=== PATIENT | female | born 1940 | race Caucasian/White ===

== ENCOUNTER 2016-10-14 07:49 | Emergency (ER) | payer MEDICARE, OTHER ==
--- NOTE | 2016-10-14 09:05 | CT ---
Exam: CT abdomen and pelvis without contrast COMPARISON: Lumbar spine radiographs 06/22/2016 INDICATION: Ground-level fall, right hip and pelvic pain. TECHNIQUE: CT examination of the abdomen and pelvis was obtained without contrast using a renal stone protocol. FINDINGS: Osteopenia. Sagittal alignment of the spine is unchanged, with trace retrolisthesis of L1 on L2 and L2 on L3 and trace anterolisthesis of L4 and L5. Levoconvex curvature centered at L3-4 is also unchanged. There is multilevel degenerative disc disease, most prominent from L1 through L4. There is no vertebral body compression fracture. Facet arthropathy is present within the spine. Lucent lesion within the left side of the sacrum is noted and a fat-containing, compatible with a benign etiology. No pathologic fracture is identified. Mild degenerative changes are seen within the sacroiliac joints, left slightly greater than right. No acute displaced pelvic fracture is identified. No displaced hip fracture is seen either. Old left ununited lateral 10th rib fracture is noted. There is no pelvic hematoma. Urinary bladder is unremarkable. Uterus is absent. There is no adnexal mass. There is mild colonic diverticulosis without evidence of diverticulitis. There is no bowel obstruction, free air or free intraperitoneal fluid. Post cholecystectomy. There is a 2.1 cm subcapsular cyst within the right lobe of the liver. Liver is otherwise unremarkable this noncontrast exam. There is no adrenal mass. Spleen is normal in size. Pancreas within normal limits. There is no hydronephrosis. Bilateral renal cysts are appreciated, measuring up to 1.8 cm on the right and 1.4 cm on the left. Atheromatous and ectatic but nonaneurysmal abdominal aorta. Postsurgical changes are noted about the GE junction. Limited evaluation lung bases demonstrates noncalcified pulmonary nodules within the lung bases, measuring 5 mm on the right on axial image 24 and 4 mm on the left on axial image 11. These are of uncertain chronicity given lack of similar comparisons. There is no pleural effusion. IMPRESSION: 1. Noncalcified pulmonary nodules within the lung bases which are of uncertain chronicity given lack of comparisons. If these are previously unknown nonemergent CT examination of the chest is recommended to evaluate for additional pulmonary nodules which will determine follow-up interval. 2. No acute fracture identified to explain the pelvic or right hip pain after ground-level fall. 3. Several chronic changes in the abdomen and pelvis as above. Message left for Dr. Bassam Tellez in the ED at 1100 hours 10/14/2016.
== END 2016-10-14 10:38 | disposition home or self-care (01) ==
LOC: ED 07:49
DX: S76.011A Strain of muscle, fascia and tendon of right hip, initial encounter (principal); R91.8 Other nonspecific abnormal finding of lung field; I10 Essential (primary) hypertension; W19.XXXA Unspecified fall, initial encounter; Y93.9 Activity, unspecified; Y92.009 Unspecified place in unspecified non-institutional (private) residence as the place of occurrence of the external cause